=== PATIENT | female | born 1950 | race Two or more races ===

== ENCOUNTER 2017-06-08 17:11 | Inpatient (IN) | payer SELFPAY ==
[~2017-06-08] VITALS: Ht 165.1 cm; Wt 81.6 kg
[2017-06-08] MEDS ORDERED: HYDROCODONE/APAP 7.5/325MG 1 TAB TABLET PO ONE (17:45)
[2017-06-08] MEDS ORDERED: SODIUM CHLORIDE 0.9% 1,000 ML IV ONE (20:29)
[2017-06-08] MEDS ORDERED: ONDANSETRON HCL 4MG/2ML VIAL IV ONE (20:45)
[2017-06-08] MEDS ORDERED: PROPOFOL 200MG/20ML VIAL IV ONE (20:45)
[2017-06-08 21:47] LABS: BASOPHILS % 0.8 % (0.0-2.0); EOSINOPHILS % 0.7 % (0.0-5.0); HEMATOCRIT. 36.2 % (36.0-48.0); HEMOGLOBIN. 11.8 g/dL (12.0-16.0); LYMPHOCYTES % 18.7 % (20.0-50.0); MEAN CORPUSCULAR VOLUME 83.2 fL (81.0-99.0); MEAN PLATELET VOLUME 9.9 fl (7.4-10.4); MONOCYTES % 5.9 % (2.0-8.0); NEUTROPHILS % 73.9 % (40.0-76.0); PLATELET 210 x1000/uL (130-400); RED BLOOD CELL COUNT 4.35 mill/uL (4.2-5.4); RED CELL DISTRIBUTION WIDTH 14.6 % (11.6-14.6)
[2017-06-08 21:54] LABS: INR 1.1; PROTHROMBIN TIME 11.3 sec
[2017-06-08 21:57] LABS: CARBON DIOXIDE 24 mEq/L (21-32); CHLORIDE 110 mEq/L (98-107)
[2017-06-08] MEDS ORDERED: ACETAMINOPHEN 650MG/20.3ML UDC GT PRN (22:15)
[2017-06-08] MEDS ORDERED: ONDANSETRON HCL 4MG/2ML VIAL IV PRN (22:15)
[2017-06-08] MEDS ORDERED: CLONIDINE 0.1MG TABLET PO PRN (22:15)
[2017-06-09 01:28] LABS: CLARITY URINE CLEAR (CLEAR); COLOR URINE YELLOW (YELLOW); GLUCOSE URINE NEGATIVE (NEGATIVE); KETONES URINE NEGATIVE (NEGATIVE); LEUKOCYTE ESTERASE URINE NEGATIVE (NEGATIVE); NITRITE URINE POSITIVE (NEGATIVE); OCCULT BLOOD URINE NEGATIVE (NEGATIVE); PH URINE 5.5 (4.5-8.0); PROTEIN URINE 1+ (NEGATIVE); SPECIFIC GRAVITY URINE 1.029 (1.005-1.030); UROBILINOGEN URINE 0.2 E.U./dL (0.2-1.0)
[2017-06-09 01:41] LABS: *AMPHETAMINES SCREEN URINE NEGATIVE (NEGATIVE); *BARBITURATES SCREEN URINE NEGATIVE (NEGATIVE); *BENZODIAZEPINES SCREEN URINE NEGATIVE (NEGATIVE); *COCAINE SCREEN URINE NEGATIVE (NEGATIVE); CANNABINOID URINE SCREEN NEGATIVE (NEGATIVE); METHADONE URINE SCREEN NEGATIVE (NEGATIVE); OPIATES URINE SCREEN PRESUMTIVE POSITIVE (NEGATIVE); PHENCYCLIDINE URINE SCREEN NEGATIVE (NEGATIVE)
[2017-06-09 04:00] VITALS: BP 147/47
[2017-06-09] MEDS: DEXT 5%/0.45% NACL 1000ML 1,000 ML IV SCH ×2 (05:39→21:03)
[2017-06-09] MEDS: ENOXAPARIN 40MG/0.4ML SYR SUBCUT SCH (06:00)
[2017-06-09 07:07] LABS: BASOPHILS % 0.5 % (0.0-2.0); EOSINOPHILS % 0.8 % (0.0-5.0); HEMATOCRIT. 34.6 % (36.0-48.0); HEMOGLOBIN. 11.5 g/dL (12.0-16.0); LYMPHOCYTES % 21.2 % (20.0-50.0); MEAN CORPUSCULAR HEMOGLOBIN 27.6 pg (28.0-32.0); MEAN CORPUSCULAR VOLUME 82.9 fL (81.0-99.0); MEAN PLATELET VOLUME 10.4 fl (7.4-10.4); MONOCYTES % 6.5 % (2.0-8.0); PLATELET 197 x1000/uL (130-400); RED BLOOD CELL COUNT 4.17 mill/uL (4.2-5.4)
[2017-06-09 07:47] LABS: CARBON DIOXIDE 24 mEq/L (21-32); CHLORIDE 108 mEq/L (98-107)
[2017-06-09 08:00] VITALS: BP 143/69
[2017-06-09] MEDS ORDERED: DEXTROSE 50% WATER 50ML SYRINGE IV PRN (09:15)
[2017-06-09] MEDS: INSULIN LISPRO 100 UNITS/ML SUBCUT SCH ×4 (09:30→21:00)
[2017-06-09] MEDS: BLOOD SUGAR DIAGNOSTIC STRIP TEST SCH ×4 (09:46→21:06)
[2017-06-09] MEDS ORDERED: METF10002 PO (11:16)
[2017-06-09] MEDS ORDERED: GLIP5TAB12 PO (11:16)
[2017-06-09 12:00] VITALS: BP 144/77
[2017-06-09] MEDS: LEVOFLOXACIN 500MG PREMIX 100 ML IV SCH (15:00)
[2017-06-09] MEDS ORDERED: MAGNESIUM 2 G PREMIX 50 ML IV NR ×2 (15:00→23:00)
[2017-06-09] MEDS: HYDROMORPHONE HCL/PF 2MG/ML CPJ IV PRN (15:00)
[2017-06-09] MEDS: GLIPIZIDE 5MG TABLET PO SCH ×2 (15:01→18:24)
[2017-06-09 16:00] VITALS: BP 152/69
[2017-06-10] VITALS: BP 99/98
[2017-06-10 04:00] VITALS: BP 154/68
[2017-06-10 06:47] LABS: BASOPHILS % 0.7 % (0.0-2.0); EOSINOPHILS % 1.1 % (0.0-5.0); HEMATOCRIT. 35.5 % (36.0-48.0); HEMOGLOBIN. 11.8 g/dL (12.0-16.0); LYMPHOCYTES % 18.3 % (20.0-50.0); MEAN CORPUSCULAR HEMOGLOBIN 27.4 pg (28.0-32.0); MEAN CORPUSCULAR VOLUME 82.7 fL (81.0-99.0); MEAN PLATELET VOLUME 10.2 fl (7.4-10.4); MONOCYTES % 6.7 % (2.0-8.0); NEUTROPHILS % 73.2 % (40.0-76.0); PLATELET 194 x1000/uL (130-400); RED BLOOD CELL COUNT 4.29 mill/uL (4.2-5.4); RED CELL DISTRIBUTION WIDTH 14.8 % (11.6-14.6)
[2017-06-10] MEDS: HYDROMORPHONE HCL/PF 2MG/ML CPJ IV PRN (07:08)
[2017-06-10] MEDS: BLOOD SUGAR DIAGNOSTIC STRIP TEST SCH ×4 (07:13→20:01)
[2017-06-10] MEDS: INSULIN LISPRO 100 UNITS/ML SUBCUT SCH ×4 (07:13→20:01)
[2017-06-10 07:15] LABS: CARBON DIOXIDE 25 mEq/L (21-32); CHLORIDE 107 mEq/L (98-107); PHOSPHORUS 3.2 mg/dL (2.5-4.9)
[2017-06-10] MEDS: ENOXAPARIN 40MG/0.4ML SYR SUBCUT SCH (07:53)
[2017-06-10] MEDS: GLIPIZIDE 5MG TABLET PO SCH ×2 (07:56→17:40)
[2017-06-10 08:00] VITALS: BP 156/78
[2017-06-10 12:00] VITALS: BP 144/70
[2017-06-10] MEDS ORDERED: POTASSIUM CHLORIDE 20MEQ TABLET SR PO NR (13:30)
[2017-06-10] MEDS: LEVOFLOXACIN 500MG PREMIX 100 ML IV SCH (14:00)
[2017-06-10] MEDS: DEXT 5%/0.45% NACL 1000ML 1,000 ML IV SCH (14:00)
[2017-06-10 16:00] VITALS: BP 143/71
[2017-06-10 20:00] VITALS: BP 129/72
[2017-06-11] VITALS: BP 131/85
[2017-06-11 04:00] VITALS: BP 146/72
[2017-06-11] MEDS: INSULIN LISPRO 100 UNITS/ML SUBCUT SCH ×4 (07:07→20:58)
[2017-06-11] MEDS ORDERED: BACITRACIN ZINC 15GM TUBE TOP ONE (07:07)
[2017-06-11] MEDS ORDERED: VANCOMYCIN HCL 500 MG/VIAL ONE (07:07)
[2017-06-11] MEDS ORDERED: BACITRACIN 50,000 UNITS/VIAL ONE (07:07)
[2017-06-11 07:09] LABS: HEMATOCRIT 35.7 % (36.0-48.0); HEMOGLOBIN 11.7 g/dL (12.0-16.0); MEAN CORPUSCULAR HEMOGLOBIN 27.2 pg (28.0-32.0); MEAN CORPUSCULAR VOLUME 82.8 fL (81.0-99.0); PLATELET 200 x1000/uL (130-400); RED BLOOD CELL COUNT 4.31 mill/uL (4.2-5.4); RED CELL DISTRIBUTION WIDTH 14.4 % (11.6-14.6)
[2017-06-11] MEDS: GLIPIZIDE 5MG TABLET PO SCH ×2 (07:20→16:36)
[2017-06-11] MEDS ORDERED: LIDOCAINE HCL 1% 20ML VIAL (Pyxis) INJ ONE (07:41)
[2017-06-11] MEDS ORDERED: PROPOFOL 200MG/20ML VIAL IV ONE (07:41)
[2017-06-11] MEDS ORDERED: CEFAZOLIN SODIUM 1000MG/VIAL ONE (07:42)
[2017-06-11] MEDS ORDERED: SODIUM CHLORIDE 0.9% 10ML VIAL ONE (07:42)
[2017-06-11] MEDS ORDERED: ROCURONIUM BROMIDE 10MG/ML VIAL 5ML IV ONE (07:42)
[2017-06-11] MEDS ORDERED: MIDAZOLAM HCL 2 MG/2 ML VIAL ONE (07:45)
[2017-06-11] MEDS ORDERED: FENTANYL CITRATE/PF 50MCG/ML 2ML VIAL ONE (07:45)
[2017-06-11] MEDS ORDERED: METOCLOPRAMIDE HCL 10MG/2ML VIAL ONE (08:11)
[2017-06-11] MEDS ORDERED: ONDANSETRON HCL 4MG/2ML VIAL ONE (08:11)
[2017-06-11 08:19] LABS: CARBON DIOXIDE 26 mEq/L (21-32); CHLORIDE 107 mEq/L (98-107)
[2017-06-11] MEDS ORDERED: GLYCOPYRROLATE 0.2 MG/ML 2ML VIAL ONE (08:23)
[2017-06-11] MEDS ORDERED: NEOSTIGMINE METHYLSULFATE 1MG/ML 10 ML VIAL ONE (08:23)
[2017-06-11] MEDS: MORPHINE SULFATE 4 MG/ML CPJ (NOT FOR IM USE) IV PRN ×2 (09:30→09:59)
[2017-06-11] MEDS: CALCIUM CARBONATE/VITAMIN D3 500MG TABLET PO SCH ×2 (10:49→16:36)
[2017-06-11] MEDS: DEXT 5%/0.45% NACL 1000ML 1,000 ML IV SCH (10:49)
[2017-06-11 12:00] VITALS: BP 165/78
[2017-06-11] MEDS: BLOOD SUGAR DIAGNOSTIC STRIP TEST SCH ×3 (12:01→20:58)
[2017-06-11] MEDS: LEVOFLOXACIN 500MG PREMIX 100 ML IV SCH (13:36)
[2017-06-11] MEDS ORDERED: HYDROCODONE/ACETAMINOPHEN 5/325MG TABLET PO PRN (13:45)
[2017-06-11] MEDS: HYDROMORPHONE HCL/PF 2MG/ML CPJ IV PRN ×3 (13:50→21:25)
[2017-06-11 16:00] VITALS: BP 144/74
[2017-06-11] MEDS: CEFAZOLIN 1000MG PREMIX 50 ML IV SCH ×2 (16:38→21:23)
[2017-06-11 20:00] VITALS: BP 150/64
[2017-06-11] MEDS: ENOXAPARIN 40MG/0.4ML SYR SUBCUT SCH (21:23)
[2017-06-12] VITALS: BP 144/60
[2017-06-12] MEDS: HYDROMORPHONE HCL/PF 2MG/ML CPJ IV PRN ×4 (02:30→18:50)
[2017-06-12 04:00] VITALS: BP 145/63
[2017-06-12 05:29] LABS: HEMATOCRIT 34.1 % (36.0-48.0); HEMOGLOBIN 11.2 g/dL (12.0-16.0); MEAN CORPUSCULAR HEMOGLOBIN 27.3 pg (28.0-32.0); MEAN CORPUSCULAR VOLUME 83.2 fL (81.0-99.0); PLATELET 201 x1000/uL (130-400); RED CELL DISTRIBUTION WIDTH 14.5 % (11.6-14.6)
[2017-06-12 06:21] LABS: CHLORIDE 101 mEq/L (98-107)
[2017-06-12] MEDS: BLOOD SUGAR DIAGNOSTIC STRIP TEST SCH ×4 (06:30→20:43)
[2017-06-12] MEDS: DEXT 5%/0.45% NACL 1000ML 1,000 ML IV SCH (06:30)
[2017-06-12 06:33] LABS: CARBON DIOXIDE 26 mEq/L (21-32)
[2017-06-12] MEDS: GLIPIZIDE 5MG TABLET PO SCH ×2 (07:01→16:55)
[2017-06-12] MEDS: INSULIN LISPRO 100 UNITS/ML SUBCUT SCH ×4 (07:02→21:00)
[2017-06-12 08:00] VITALS: BP 148/74
[2017-06-12] MEDS: CALCIUM CARBONATE/VITAMIN D3 500MG TABLET PO SCH ×2 (08:59→16:55)
[2017-06-12] MEDS: LEVOFLOXACIN 500MG TABLET PO SCH (11:49)
[2017-06-12 12:00] VITALS: BP 137/68
[2017-06-12] MEDS ORDERED: BISACODYL 5MG TABLET PO PRN (15:45)
[2017-06-12] MEDS ORDERED: BISACODYL 10MG SUPP PR PRN (15:45)
[2017-06-12 16:00] VITALS: BP 140/80
[2017-06-12] MEDS: PSYLLIUM SEED PACKET PO SCH ×2 (16:55→17:01)
[2017-06-12 20:00] VITALS: BP_SYST 140; BP_SYST 143; BP_DIAS 70
[2017-06-12] MEDS: SENNOSIDES/DOCUSATE SOD 8.6/50MG TABLET PO SCH (20:42)
[2017-06-12] MEDS: ENOXAPARIN 40MG/0.4ML SYR SUBCUT SCH (20:43)
[2017-06-12] MEDS: INSULIN DETEMIR UD 100 UNITS/ML SYR SUBCUT SCH (22:57)
[2017-06-13] VITALS: BP 140/75
[2017-06-13] MEDS: HYDROCODONE/ACETAMINOPHEN 5/325MG TABLET PO PRN ×3 (01:29→16:50)
[2017-06-13 04:00] VITALS: BP 142/63
[2017-06-13] MEDS: GLIPIZIDE 5MG TABLET PO SCH ×2 (06:39→18:32)
[2017-06-13] MEDS: BLOOD SUGAR DIAGNOSTIC STRIP TEST SCH ×4 (06:39→22:52)
[2017-06-13] MEDS: INSULIN LISPRO 100 UNITS/ML SUBCUT SCH ×4 (07:31→21:00)
[2017-06-13 08:00] VITALS: BP 130/60
[2017-06-13] MEDS: CALCIUM CARBONATE/VITAMIN D3 500MG TABLET PO SCH ×2 (08:55→18:31)
[2017-06-13] MEDS: PSYLLIUM SEED PACKET PO SCH ×3 (08:55→18:31)
[2017-06-13 08:57] LABS: EOSINOPHILS % 1.6 % (0.0-5.0); HEMATOCRIT. 34.6 % (36.0-48.0); HEMOGLOBIN. 11.6 g/dL (12.0-16.0); LYMPHOCYTES % 20.1 % (20.0-50.0); MEAN CORPUSCULAR HEMOGLOBIN 27.4 pg (28.0-32.0); MEAN CORPUSCULAR VOLUME 81.6 fL (81.0-99.0); MEAN PLATELET VOLUME 10.2 fl (7.4-10.4); MONOCYTES % 7.8 % (2.0-8.0); NEUTROPHILS % 69.5 % (40.0-76.0); PLATELET 218 x1000/uL (130-400); RED BLOOD CELL COUNT 4.24 mill/uL (4.2-5.4); RED CELL DISTRIBUTION WIDTH 14.5 % (11.6-14.6)
[2017-06-13 09:29] LABS: CARBON DIOXIDE 27 mEq/L (21-32); CHLORIDE 101 mEq/L (98-107)
[2017-06-13] MEDS: LEVOFLOXACIN 500MG TABLET PO SCH (11:14)
[2017-06-13 12:04] VITALS: BP 103/51
[2017-06-13 16:00] VITALS: BP 126/68
[2017-06-13 20:00] VITALS: BP 131/63
[2017-06-13] MEDS: SENNOSIDES/DOCUSATE SOD 8.6/50MG TABLET PO SCH (22:46)
[2017-06-13] MEDS: ENOXAPARIN 40MG/0.4ML SYR SUBCUT SCH (22:46)
[2017-06-13] MEDS: INSULIN DETEMIR UD 100 UNITS/ML SYR SUBCUT SCH (22:57)
[2017-06-14] VITALS: BP 124/69
[2017-06-14] MEDS: HYDROCODONE/ACETAMINOPHEN 5/325MG TABLET PO PRN ×2 (01:06→09:13)
[2017-06-14 04:00] VITALS: BP 130/67
[2017-06-14] MEDS: BLOOD SUGAR DIAGNOSTIC STRIP TEST SCH ×2 (06:42→12:15)
[2017-06-14] MEDS: GLIPIZIDE 5MG TABLET PO SCH (06:55)
[2017-06-14] MEDS: INSULIN LISPRO 100 UNITS/ML SUBCUT SCH ×2 (07:50→12:14)
[2017-06-14 08:00] VITALS: BP 135/66
[2017-06-14] MEDS: CALCIUM CARBONATE/VITAMIN D3 500MG TABLET PO SCH (09:13)
[2017-06-14] MEDS: PSYLLIUM SEED PACKET PO SCH ×2 (09:13→12:15)
[2017-06-14 12:00] VITALS: BP 136/73
[2017-06-14 12:11] LABS: BASOPHILS % 0.9 % (0.0-2.0); EOSINOPHILS % 2.5 % (0.0-5.0); HEMATOCRIT. 34.5 % (36.0-48.0); HEMOGLOBIN. 11.6 g/dL (12.0-16.0); MEAN CORPUSCULAR HEMOGLOBIN 27.8 pg (28.0-32.0); MEAN CORPUSCULAR VOLUME 82.8 fL (81.0-99.0); MEAN PLATELET VOLUME 9.7 fl (7.4-10.4); MONOCYTES % 6.8 % (2.0-8.0); NEUTROPHILS % 69.8 % (40.0-76.0); PLATELET 248 x1000/uL (130-400); RED BLOOD CELL COUNT 4.17 mill/uL (4.2-5.4); RED CELL DISTRIBUTION WIDTH 14.3 % (11.6-14.6)
[2017-06-14] MEDS: LEVOFLOXACIN 500MG TABLET PO SCH (12:14)
[2017-06-14 12:49] LABS: CARBON DIOXIDE 29 mEq/L (21-32); CHLORIDE 102 mEq/L (98-107)
[2017-06-14 13:48] VITALS: BP 136/73
== END 2017-06-14 14:20 | disposition home or self-care (01) | DRG 313 ==
LOC: ER 17:23 → SUPCPDRO 22:13 → EDBEDREQ 23:00 → 6EST 23:42 → EDBEDREQSVC 23:49 → EDBEDREQ 23:49 → ENRESERV 06-09 01:20
PROVIDERS: ADMIT Internal Medicine Nephrology; ATTEND Internal Medicine Nephrology
PROC: 0QSH04Z Reposition Left Tibia with Internal Fixation Device, Open Approach (ICD-10-PCS; principal; 2017-06-09)
DX: S82.852A Displaced trimalleolar fracture of left lower leg, initial encounter for closed fracture (principal); E66.01 Morbid (severe) obesity due to excess calories; I10 Essential (primary) hypertension; N39.0 Urinary tract infection, site not specified; E11.9 Type 2 diabetes mellitus without complications; D64.9 Anemia, unspecified; E87.6 Hypokalemia; Y93.89 Activity, other specified; Y92.89 Other specified places as the place of occurrence of the external cause; Y99.8 Other external cause status; Z68.30 Body mass index [BMI] 30.0-30.9, adult; W10.9XXA Fall (on) (from) unspecified stairs and steps, initial encounter
CPT/HCPCS: 36415; 73560; 73600; 73610; 80048; 80053; 80305; 81001; 82962; 83036; 83735; 84100; 84478; 85025; 85027; 85610; 87040; 87077; 87086; 87186; 93005; 96374; 97110; 97116; 97162; 97166; 99285; A4216; C1713; J0690; J1170; J1650; J1815; J1956; J2250; J2270; J2405; J2704; J2710; J2765; J3010; J3370; J3475; J3490; J7030; Q4051